=== PATIENT | male | born 1975 | race Hispanic/Latino ===

== ENCOUNTER 2018-12-04 20:28 | Emergency (ER) | payer SELFPAY ==
[2018-12-04] MEDS ORDERED: Amoxicillin/Potassium Clav 875 MG TAB ONE (21:15)
== END 2018-12-04 21:45 | disposition home or self-care (01) ==
LOC: BURERS 20:28
DX: H60.92 Unspecified otitis externa, left ear (principal); F17.210 Nicotine dependence, cigarettes, uncomplicated
CPT/HCPCS: 36416; 99283